=== PATIENT | female | born 1985 | race African-American/Black ===

== ENCOUNTER 2020-09-28 10:01 | Outpatient (REF) | payer OTHER, SELFPAY ==
[2020-09-28 11:22] LABS: MANUAL DIFF FLAG NO
[2020-09-28 11:33] LABS: Basophils Percent Auto 0.4 % (0-2); Eosinophils Percent Auto 0.7 % (0-4); Hematocrit 40.7 % (37-47); Hemoglobin 13.1 g/dl (12.0-16.0); Imm Gran Abs Auto 0.01 X10*3/uL (0.00-0.03); Imm Gran Pct Auto 0.2 % (0.0-0.4); Lymphocytes Absolute Auto 1.9 X10*3/uL (1.2-4.9); Lymphocytes Percent Auto 34.5 % (20-40); Mean Corpuscular HGB Conc 32.2 g/dl (31.0-35.0); Mean Corpuscular Volume 93.1 fL (80-98); Mean Platelet Volume 9.4 fL (9.4-12.3); Monocytes Absolute Auto 0.5 X10*3/uL (0.1-1.2); Monocytes Percent Auto 8.5 % (2-11); Neutrophils Absolute Auto 3.1 X10*3/uL (2.0-8.3); Neutrophils Percent Auto 55.7 % (45-73); Platelet Count 305 X10*3/uL (160-400); Red Blood Count 4.37 X10*6/uL (4.20-5.50); Red Cell Distribution Width 11.4 % (11.0-16.0); White Blood Count 5.5 X10*3/uL (4.8-10.8)
[2020-09-28 12:04] LABS: Alanine Aminotransferase 16 U/L (0-31); Anion Gap 13 (12-20); Aspartate Amino Transferase 15 U/L (5-31); Blood Urea Nitrogen 16 mg/dL (9-16); Calcium 8.4 mg/dL (8.4-10.2); Carbon Dioxide 23 mmol/L (22-29); Chloride 107 mmol/L (96-108); Cholesterol 152 mg/dL; Estimated Glomerular Filt Rate > 60; Glucose Fasting 73 mg/dL (60-99); HDL Cholesterol 55 mg/dL; Iron 106 mcg/dL (30-160); LDL Cholesterol Calculated 89 mg/dl; Percent Iron Saturation 37 % (15-50); Potassium 4.5 mmol/L (3.3-5.1); Sodium 138 mmol/L (135-145); Total Iron Binding Capacity 290 mcg/dL (228-428); Triglycerides 40 mg/dL; Unsaturated Iron Binding 184 ug/dL
[2020-09-28 12:27] LABS: TSH reflex Free T4 0.36 uIU/mL (0.32-4.0); Vitamin D 25-OH Total 27.4 ng/mL (>30)
[2020-09-28 13:04] LABS: Ferritin 42 ng/mL (10-122)
== END 2020-09-28 10:02 | disposition home or self-care (01) ==
LOC: HO.HMGCLDS 10:01
PROVIDERS: PCP Internal Medicine; Visit Provider Internal Medicine
DX: Z00.01 Encounter for general adult medical examination with abnormal findings (principal); D50.0 Iron deficiency anemia secondary to blood loss (chronic); I10 Essential (primary) hypertension
CPT/HCPCS: 36415; 80048; 80061; 82306; 82728; 83540; 84443; 84450; 84460; 85025

== ENCOUNTER 2021-09-29 11:03 | Outpatient (REF) | payer OTHER, SELFPAY ==
[2021-09-29 13:53] LABS: MANUAL DIFF FLAG NO
[2021-09-29 13:57] LABS: Basophils Percent Auto 0.5 % (0-2); Eosinophils Percent Auto 0.7 % (0-4); Hematocrit 39.3 % (37.0-47.0); Hemoglobin 12.7 g/dl (12.0-16.0); Imm Gran Abs Auto 0.01 X10*3/uL (0.00-0.03); Imm Gran Pct Auto 0.2 % (0.0-0.4); Lymphocytes Absolute Auto 2.9 X10*3/uL (1.2-4.9); Lymphocytes Percent Auto 48.4 % (20-40); Mean Corpuscular HGB Conc 32.3 g/dl (31.0-35.0); Mean Corpuscular Volume 92.9 fL (80.0-98.0); Mean Platelet Volume 9.2 fL (9.4-12.3); Monocytes Absolute Auto 0.5 X10*3/uL (0.1-1.2); Monocytes Percent Auto 7.6 % (2-11); Neutrophils Absolute Auto 2.5 x10*3/uL (2.0-8.3); Neutrophils Percent Auto 42.6 % (45-73); Platelet Count 338 X10*3/uL (160-400); Red Blood Count 4.23 X10*6/uL (4.20-5.50); Red Cell Distribution Width 11.6 % (11.0-16.0); White Blood Count 5.9 X10*3/uL (4.8-10.8)
[2021-09-29 14:08] LABS: Alanine Aminotransferase 17 U/L (0-31); Anion Gap 10 (12-20); Aspartate Amino Transferase 16 U/L (5-31); Blood Urea Nitrogen 12 mg/dL (9-16); Calcium 9.3 mg/dL (8.4-10.2); Carbon Dioxide 28 mmol/L (22-29); Chloride 106 mmol/L (96-108); Cholesterol 158 mg/dL; Estimated Glomerular Filt Rate > 60; Glucose Fasting 74 mg/dL (60-99); HDL Cholesterol 57 mg/dL; Iron 128 mcg/dL (30-160); LDL Cholesterol Calculated 92 mg/dl; Percent Iron Saturation 47 % (15-50); Potassium 4.5 mmol/L (3.3-5.1); Sodium 139 mmol/L (135-145); Total Iron Binding Capacity 274 mcg/dL (228-428); Triglycerides 47 mg/dL; Unsaturated Iron Binding 146 ug/dL
[2021-09-29 14:25] LABS: Vitamin D 25-OH Total 36.4 ng/mL (>30)
== END 2021-09-29 11:04 | disposition home or self-care (01) ==
LOC: HO.HMGCLDS 11:03
PROVIDERS: Visit Provider Internal Medicine
DX: Z00.01 Encounter for general adult medical examination with abnormal findings (principal)
CPT/HCPCS: 36415; 80048; 80061; 82306; 83540; 84450; 84460; 85025

== ENCOUNTER 2022-10-02 10:48 | Outpatient (REF) | payer OTHER, SELFPAY ==
[2022-10-02 14:02] LABS: Alanine Aminotransferase 16 U/L (0-31); Anion Gap 12 (12-20); Aspartate Amino Transferase 15 U/L (5-31); Blood Urea Nitrogen 11 mg/dL (9-16); Calcium 9.4 mg/dL (8.4-10.2); Carbon Dioxide 23 mmol/L (22-29); Chloride 106 mmol/L (96-108); Cholesterol 154 mg/dL; Estimated Glomerular Filt Rate > 60; Glucose Fasting 83 mg/dL (60-99); HDL Cholesterol 61 mg/dL; LDL Cholesterol Calculated 85 mg/dl; Potassium 4.1 mmol/L (3.3-5.1); Sodium 137 mmol/L (135-145); Triglycerides 42 mg/dL
[2022-10-02 14:44] LABS: Vitamin D 25-OH Total 29.4 ng/mL (>30)
== END 2022-10-02 10:49 | disposition home or self-care (01) ==
LOC: HO.HMGCLDS 10:48
PROVIDERS: PCP Internal Medicine; Visit Provider Internal Medicine
DX: Z00.01 Encounter for general adult medical examination with abnormal findings (principal); F32.A Depression, unspecified; F41.9 Anxiety disorder, unspecified
CPT/HCPCS: 36415; 80048; 80061; 82306; 84450; 84460

== ENCOUNTER 2023-03-12 13:32 | Outpatient (AMB) | payer OTHER, SELFPAY ==
--- NOTE | 2023-03-12 13:37 | A.OFFPC_ITS ---
Vital Signs 03/12/23 14:04 Height 5 ft 1 in Weight 163 lb BMI 30.8 BP 110/60 Blood Pressure Location Rt brachial Position Sitting Pulse 63 Pulse Source Pulse Oximeter Pulse Oximetry (%) 97 Oxygen Delivery Method Room Air Intake Visit Reasons: 1 Month F/Up Intake Note: Pt is here today for her 1month anxiety and depression Allergies No Known Allergies Allergy (Verified 03/12/23 14:15) Medication List - Last Reconciled 03/12/23 by Shira Barrientos MD ascorbic acid (vitamin C) 500 mg PO DAILY buspirone 10 mg PO BID calcium carb-mag ox-zinc gluc 333-133-5 mg tabs PO cholecalciferol (vitamin D3) 50 mcg PO DAILY multivitamin 1 tab PO DAILY omega 8-row-lny-fish oil 300-1,000 mg 1 cap PO DAILY Tobacco use date assessed: 03/12/23 Dental Screening Dental Screen Date: 03/12/23 Did you have a dental visit in the last 12 months?: Yes Did you have a dental problem in the last 6 months where you did not have access to dental care?: No Was dental information given to patient?: Patient has dentist HPI 1 Month F/Up HPI Details 37-year-old lady here today for follow-up on her anxiety depression, currently taking buspirone 10 mg , but has only been taking it mainly in the morning and forgets the afternoon dose. States that it has been helping but still gets occasional episodes of anxiety attacks usually later in the day. Has been tolerating medication without any side effects. Does not see a therapist does not feel that she needs to see 1 at present time [facility] Medical History Anxiety and depression COVID-19 Fracture of right wrist with nonunion Iron deficiency anemia Smoker unmotivated to quit Uterine fibroid Surgical History H/O hysterectomy for benign disease History of bilateral salpingectomy History of section History of tubal ligation Family History Father Medical history non-contributory Mother HTN (hypertension) Brother No problems noted. Brother No problems noted. Sister No problems noted. Sister No problems noted. Sister No problems noted. Sister No problems noted. Sister No problems noted. Sister No problems noted. Son No problems noted. Daughter No problems noted. Paternal Grandmother Cancer Social History Housing: House Unable to assess alcohol history related to: Unknown Patient Tobacco Use Status: Current someday Tobacco user Cigarettes Per Day: 5 e-Cigarette/Vaping Use: Former Use service: No Current occupational status: employed Cognitive needs: No Hearing needs: No Vision needs: Yes Questionnaire PHQ-9 Over the last 2 weeks, how often have you been bothered by any of the following problems? 1. Little interest or pleasure in doing things: not at all 2. Feeling down, depressed, or hopeless: not at all 3. Trouble falling or staying asleep, or sleeping too much: several days 4. Feeling tired or having little energy: several days 5. Poor appetite or overeating: not at all 6. Feeling bad about yourself - or that you are a failure or have let yourself or your family down: not at all 7. Trouble concentrating on things, such as reading the newspaper or watching television: not at all 8. Moving or speaking so slowly that other people could have noticed. Or the opposite - being so fidgety or restless that you have been moving around a lot more than usual: not at all 9. Thoughts that you would be better off or of hurting yourself in some way: not at all Total score: 2 Depression Screening Interpretation: Positive Depression Screening Follow-up: Existing condition and In treatment 19470 - PHQ-9 Billing: Yes Source: Developed by Drs. Sean Carrington, Sari Burton, Garrett schmidt nd colleagues, with an educational jose from [employer]. NANCY-7 AMB Questionnaire NANCY-7 Date NANCY - 7 assessed: 03/12/23 Feeling nervous, anxious, or on edge: 1 = Several days Not being able to stop or control worryin = Several days Worrying too much about different things: 0 = Not at all Trouble relaxin = Not at all Being so restless that it is hard to sit still: 0 = Not at all Becoming easily annoyed or irritable: 0 = Not at all Feeling afraid as if something awful might happen: 0 = Not at all Total NANCY-7 score (0-4 normal; 5-9 mild; 10-14 moderate; 15-21 severe): 2 Source: Developed by Drs. Sean Carrington, Sari Burton, Garrett Fair and colleagues, with an educational jose from [employer]. NANCY-7 Assessment Billing NANCY-7 Assessment Tool: NANCY-7 Assessment 56935 Review of Systems Const All systems reviewed & are unremarkable except as noted in HPI and below Physical exam (Primary Care) Vital Signs: Last Vital Signs Pulse 63 03/12/23 14:04 BP 110/60 03/12/23 14:04 Pulse Ox 97 03/12/23 14:04 Oxygen Delivery Method Room Air 03/12/23 14:04 BMI result Body Mass Index 30.8 Tobacco/Smoking Status: Tobacco use Status Tobacco use date assessed 03/12/23 03/12/23 14:07 Patient Tobacco Use Status Current someday Tobacco 03/12/23 13:38 e-Cigarette/Vaping Use Former Use 03/12/23 13:38 Depression Screening Interpretation: Positive Depression Screening Follow-up: Existing condition and In treatment Thrive Assessment: Date of Thrive Assessment Date Thrive assessed 10/02/22 03/12/23 13:38 Const Other: Alert oriented x3, no acute distress noted ambulatory normal gait Neck Neck: Yes full ROM, Yes no lymphadenopathy and Yes supple Resp Auscultation: clear to auscultation bilaterally Cardio Rate: regular rate Rhythm: regular rhythm Heart sounds: S1 normal heart sound present and S2 normal heart sound present Psych Appearance: grossly normal and well kempt Mental Status: mental status grossly normal Speech and movement: Normal speech and movement present Affect: normal affect Attitude: cooperative Thought process: Normal thought process present Thought content: Normal thought content present Assessment and Plan Assessment & Plan (1) Anxiety and depression: Code(s): F41.9 - Anxiety disorder, unspecified; F32.A - Depression, unspecified Plan: She states that she has been feeling better since starting buspirone 10 mg but has only been taking it in the morning, advised to take it twice a day, at least morning and around mid to late afternoon. Refill sent, see her back for follow- up on her physical exam scheduled for July 2023 Medications: Refilled buspirone 10 mg PO BID 60 tabs 4RF F32.A - Depression, unspecified, F41.9 - Anxiety disorder, unspecified Coding Level of Care Code Est Pt Level 3 (76729) Diagnoses Anxiety and depression F41.9; F32.A Additional Codes NANCY-7 Assessment Billing - NANCY-7 Assessment Tool: NANCY-7 Assessment 65674 ([id number])
[2023-03-12 14:04] VITALS: BP 110/60; PULSE 63; O2SAT 97; BMI 30.8
== END 2023-03-12 14:36 | disposition home or self-care (01) ==
PROVIDERS: PCP Internal Medicine; Visit Provider Internal Medicine
DX: F41.9 Anxiety disorder, unspecified (principal); F32.A Depression, unspecified
CPT/HCPCS: 99213

== ENCOUNTER 2023-10-09 10:47 | Outpatient (AMB) | payer OTHER, SELFPAY ==
--- NOTE | 2023-10-09 11:16 | A.OFFPC_ITS ---
Vital Signs 10/09/23 11:17 Height 5 ft 1 in Weight 155 lb BMI 29.3 BP 106/64 Blood Pressure Location Rt brachial Position Sitting Pulse 59 Pulse Source Pulse Oximeter Pulse Oximetry (%) 100 Oxygen Delivery Method Room Air Intake Visit Reasons: Annual PE Intake Note: Pt is here today for her PE: hysterectomy 03/04/20 [facility] Allergies No Known Allergies Allergy (Verified 10/09/23 11:44) Medication List - Last Reconciled 10/09/23 by Shira Barrientos MD ascorbic acid (vitamin C) 500 mg PO DAILY calcium carb-mag ox-zinc gluc 333-133-5 mg tabs PO cholecalciferol (vitamin D3) 50 mcg PO DAILY multivitamin 1 tab PO DAILY omega 2-jtx-scj-fish oil 300-1,000 mg 1 cap PO DAILY Tobacco use date assessed: 10/09/23 Dental Screening Dental Screen Date: 10/09/23 Did you have a dental visit in the last 12 months?: Yes Did you have a dental problem in the last 6 months where you did not have access to dental care?: No Was dental information given to patient?: Patient has dentist HPI Annual PE HPI Details 37-year-old lady here today for physical exam. She heads history of hysterectomy due to uterine fibroids. She has been having intermittent episodes of acute anxiety attacks and low mood, not much improved after starting buspirone 10 mg twice a day, as patient is keeps forgetting to take her evening dose. Would like to see if she can be placed on medication that she takes once a day. Declines referral for counseling. Continues to smoke cigarettes, trying to cut back but not ready to quit complete at present time [facility] Medical History (Updated 10/09/23 @ 11:46 by Shira Barrientos MD) History of uterine fibroid History of iron deficiency anemia Smoker unmotivated to quit Anxiety and depression COVID-19 Fracture of right wrist with nonunion Surgical History H/O hysterectomy for benign disease History of bilateral salpingectomy History of section History of tubal ligation Family History Father Medical history non-contributory Mother HTN (hypertension) Brother No problems noted. Brother No problems noted. Sister No problems noted. Sister No problems noted. Sister No problems noted. Sister No problems noted. Sister No problems noted. Sister No problems noted. Son No problems noted. Daughter No problems noted. Paternal Grandmother Cancer Social History Housing: House Unable to assess alcohol history related to: Unknown Patient Tobacco Use Status: Current someday Tobacco user Cigarettes Per Day: 5 e-Cigarette/Vaping Use: Former Use service: No Current occupational status: employed Cognitive needs: No Hearing needs: No Vision needs: Yes Questionnaire PHQ-9 Over the last 2 weeks, how often have you been bothered by any of the following problems? 1. Little interest or pleasure in doing things: several days 2. Feeling down, depressed, or hopeless: several days 3. Trouble falling or staying asleep, or sleeping too much: more than half the days 4. Feeling tired or having little energy: several days 5. Poor appetite or overeating: several days 6. Feeling bad about yourself - or that you are a failure or have let yourself or your family down: not at all 7. Trouble concentrating on things, such as reading the newspaper or watching television: not at all 8. Moving or speaking so slowly that other people could have noticed. Or the opposite - being so fidgety or restless that you have been moving around a lot more than usual: not at all 9. Thoughts that you would be better off or of hurting yourself in some way: not at all Total score: 6 Depression Screening Interpretation: Positive Depression Screening Follow-up: Existing condition, In treatment and New Medication prescribed Depression Screening Done: Yes Source: Developed by Drs. Sean Carrington, Sari Burton, Garrett Fair and colleagues, with an educational jose from [employer]. Thrive Questionnaire Date Thrive assessed: 10/09/23 I am a: Patient What is your living situation today?: I have a steady place to live Within the past 12 months, did the food you bought not last and you didn't have the money to get more?: Never true Within the past 12 months, did you worry whether your food would run out before you got money to buy more?: Never true Do you have trouble paying for medicines?: No Do you have trouble getting transportation to medical appointments?: No Do you have trouble paying your heating and electricity bill?: No Do you have trouble taking care of your child, family member or friend?: No Do you have trouble with day-to-day activities such as bathing, preparing meals, shopping, managing finances, etc.?: No Are you currently unemployed and looking for a job?: No Are you interested in more education?: No THRIVE Score: 0 AUDIT C Alcohol Use Questionnaire (AUDIT-C) 1. How often do you have a drink containing alcohol?: Monthly or less 2. How many drinks containing alcohol do you have on a typical day when you are drinking?: 1 or 2 3. How often do you have six or more drinks on one occasion?: Never Total Score: 1 NANCY-7 AMB Questionnaire NANCY-7 Date NANCY - 7 assessed: 10/09/23 Feeling nervous, anxious, or on edge: 2 = More than half the days Not being able to stop or control worryin = More than half the days Worrying too much about different things: 1 = Several days Trouble relaxin = Several days Being so restless that it is hard to sit still: 1 = Several days Becoming easily annoyed or irritable: 2 = More than half the days Feeling afraid as if something awful might happen: 0 = Not at all Total NANCY-7 score (0-4 normal; 5-9 mild; 10-14 moderate; 15-21 severe): 9 Source: Developed by Drs. Sean Carrington, Sari Burton, Garrett Fair and colleagues, with an educational jose from [employer]. NANCY-7 Assessment Billing NANCY-7 Assessment Tool: NANCY-7 Assessment 47654 Review of Systems Const Denies body aches, Denies fatigue and Denies headache(s) Eyes Details: has myopia , wears contacts , sees [facility] ENT Denies dizziness, Denies headache(s), Denies nasal congestion and Denies post nasal drip Card Denies irregular heart rhythm and Denies lightheadedness Resp Reports no additional complaints GI Reports no additional complaints Reports no additional complaints Musc Reports no additional complaints Skin/Breast Denies breast pain, Denies breast mass and Denies rash Neuro Reports no additional complaints, Denies dizziness and Denies headache(s) Psych Reports as per HPI Endo Reports no additional complaints and Denies fatigue Sal/Lymph Reports no additional complaints Aller/Immun Reports no additional complaints Physical exam (Primary Care) Vital Signs: Last Vital Signs Pulse 59 10/09/23 11:17 BP 106/64 10/09/23 11:17 Pulse Ox 100 10/09/23 11:17 Oxygen Delivery Method Room Air 10/09/23 11:17 BMI result Body Mass Index 29.3 Tobacco/Smoking Status: Tobacco use Status Tobacco use date assessed 10/09/23 10/09/23 11:26 Patient Tobacco Use Status Current someday Tobacco 10/09/23 11:19 e-Cigarette/Vaping Use Former Use 10/09/23 11:19 PHQ-9: PHQ-9 Score PHQ-9: Total score 6 10/09/23 11:58 Depression Screening Interpretation: Positive Depression Screening Follow-up: Existing condition, In treatment and New Medication prescribed Thrive Assessment: Date of Thrive Assessment Date Thrive assessed 10/09/23 10/09/23 11:29 Const General: cooperative, no acute distress and alert Orientation/consciousness: patient oriented x3 HENMT Head: Yes normocephalic Ears: hearing grossly normal bilaterally, TM's normal bilaterally and EAC's normal Eyes General: appearance normal, both eyes and all related structures Neck Neck: Yes full ROM, Yes no lymphadenopathy, Yes no meningeal signs and Yes supple Thyroid: Thyroid normal Chest Breast/axilla palpation: normal palpation of the breasts Resp Auscultation: clear to auscultation bilaterally Cardio Rate: regular rate Rhythm: regular rhythm Heart sounds: S1 normal heart sound present and S2 normal heart sound present GI Palpation (GI): Soft to palpation, nontender and no guarding General: Yes no CVA tenderness Back/Spine/Pelvis Back: no CVA tenderness and No back tenderness Skin General skin exam: no rashes or lesions noted and scars (Midline surgical scar) Neuro General: patient oriented x3, gait normal, tone normal, moves all extremities, Normal light touch and pain sensation, no meningeal signs and no focal motor deficits Extrem General: Yes full ROM, Yes no joint enlargement, Yes no pedal edema, Yes no calf tenderness and Yes normal gait Psych Appearance: grossly normal and well kempt Mental Status: mental status grossly normal Speech and movement: Normal speech and movement present Affect: normal affect Attitude: cooperative Thought process: Normal thought process present Thought content: Normal thought content present Assessment and Plan Assessment & Plan (1) Annual visit for general adult medical examination with abnormal findings: Code(s): Z00.01 - Encounter for general adult medical examination with abnormal findings Plan: Fasting labs ordered, . Recommended dental visit every 6 months and regular eye exams, at least every 2 years goes to [facility]. Take adequate calcium in diet and vitamin-D 3 at 2000 IU per cap once a day, in addition to weight-bearing exercises to help maintain good muscle tone and weight control. Instructed to do self-breast exam, and recommended to get yearly mammogram, starting at age 40, mammogram ordered.. Declines COVID vaccine booster and flu vaccine, up-to-date with her Tdap (2) History of vitamin D deficiency: Code(s): Z86.39 - Personal history of other endocrine, nutritional and metabolic disease Plan: Vitamin-D level ordered (3) Anxiety and depression: Code(s): F41.9 - Anxiety disorder, unspecified; F32.A - Depression, unspecified Plan: Discontinued buspirone, started on escitalopram 5 mg per tablet to take once a day in the morning. Schedule telehealth appointment for follow-up in 4 weeks Orders: Orders Lipid Panel 10/09/23 Z00. - Encounter for general adult medical examination with abnormal findings, Z86.39 - Personal history of other endocrine, nutritional and metabolic disease MM tomosynthesis screening BI 01/12/24 Z12.31 - Encounter for screening mammogram for malignant neoplasm of breast Complete Blood Count Auto Diff 10/09/23 Z00. - Encounter for general adult medical examination with abnormal findings, Z86.39 - Personal history of other endocrine, nutritional and metabolic disease Glucose Fasting 10/09/23 Z00.01 - Encounter for general adult medical examination with abnormal findings, Z86.39 - Personal history of other endocrine, nutritional and metabolic disease Vitamin D 25-OH Total 10/09/23 Z00. - Encounter for general adult medical examination with abnormal findings, Z86.39 - Personal history of other endocrine, nutritional and metabolic disease Medications: New escitalopram oxalate 5 mg PO DAILY 30 tabs 1RF F32.A - Depression, unspecified, F41.9 - Anxiety disorder, unspecified Coding Level of Care Code Est Pt Prev Care 18-39y(41828) Diagnoses Annual visit for general adult medical examination with abnormal findings Z00.01 History of vitamin D deficiency Z86.39 Anxiety and depression F41.9; F32.A Additional Codes NANCY-7 Assessment Billing - NANCY-7 Assessment Tool: NANCY-7 Assessment 54995 ([id number])
[2023-10-09 11:17] VITALS: BP 106/64; PULSE 59; O2SAT 100; BMI 29.3
== END 2023-10-09 16:03 | disposition home or self-care (01) ==
PROVIDERS: Visit Provider Internal Medicine
DX: Z00.01 Encounter for general adult medical examination with abnormal findings (principal); Z86.39 Personal history of other endocrine, nutritional and metabolic disease; F41.9 Anxiety disorder, unspecified; F32.A Depression, unspecified
CPT/HCPCS: 99395

== ENCOUNTER 2023-10-09 12:02 | Outpatient (REF) | payer OTHER, SELFPAY ==
[2023-10-09 13:18] LABS: MANUAL DIFF FLAG NO
[2023-10-09 13:39] LABS: Basophils Percent Auto 0.5 % (0-2); Eosinophils Percent Auto 0.3 % (0-4); Hematocrit 41.8 % (37.0-47.0); Hemoglobin 13.7 g/dl (12.0-16.0); Imm Gran Abs Auto 0.01 X10*3/uL (0.00-0.03); Imm Gran Pct Auto 0.2 % (0.0-0.4); Lymphocytes Absolute Auto 2.6 X10*3/uL (1.2-4.9); Lymphocytes Percent Auto 46.1 % (20-40); Mean Corpuscular HGB Conc 32.8 g/dl (31.0-35.0); Mean Corpuscular Hemoglobin 30.4 pg (27.0-33.0); Mean Corpuscular Volume 92.7 fL (80.0-98.0); Mean Platelet Volume 9.2 fL (9.4-12.3); Monocytes Absolute Auto 0.4 X10*3/uL (0.1-1.2); Monocytes Percent Auto 6.6 % (2-11); Neutrophils Absolute Auto 2.7 x10*3/uL (2.0-8.3); Neutrophils Percent Auto 46.3 % (45-73); Platelet Count 285 X10*3/uL (160-400); Red Blood Count 4.51 X10*6/uL (4.20-5.50); Red Cell Distribution Width 11.3 % (11.0-16.0); White Blood Count 5.7 X10*3/uL (4.8-10.8)
[2023-10-09 13:56] LABS: Cholesterol 162 mg/dL (<200); Glucose Fasting 87 mg/dL (60-99); HDL Cholesterol 62 mg/dL (>40); LDL Cholesterol Calculated 92 mg/dL (<100); Triglycerides 42 mg/dL (<150); Vitamin D 25-OH Total 54.4 ng/mL (>30)
== END 2023-10-09 12:03 | disposition home or self-care (01) ==
LOC: HO.HMGCLDS 12:02
PROVIDERS: PCP Internal Medicine; Visit Provider Internal Medicine
DX: Z00.01 Encounter for general adult medical examination with abnormal findings (principal); Z13.6 Encounter for screening for cardiovascular disorders; Z86.39 Personal history of other endocrine, nutritional and metabolic disease
CPT/HCPCS: 36415; 80061; 82306; 82947; 85025

== ENCOUNTER 2023-11-07 10:58 | Outpatient (AMB) | payer OTHER, SELFPAY ==
--- NOTE | 2023-11-07 10:56 | MHC.PC.OV ---
Intake Visit Reasons: 4WK F/U Telehealth Intake Note: Pt is having a telehealth visit f/u med Allergies No Known Allergies Allergy (Verified 11/07/23 11:28) Medication List - Last Reconciled 11/07/23 by Shira Barrientos MD ascorbic acid (vitamin C) 500 mg PO DAILY calcium carb-mag ox-zinc gluc 333-133-5 mg tabs PO cholecalciferol (vitamin D3) 50 mcg PO DAILY escitalopram oxalate 5 mg PO DAILY multivitamin 1 tab PO DAILY omega 6-iug-muw-fish oil 300-1,000 mg 1 cap PO DAILY Tobacco use date assessed: 11/07/23 Dental Screening Dental Screen Date: 11/07/23 Did you have a dental visit in the last 12 months?: Yes Did you have a dental problem in the last 6 months where you did not have access to dental care?: No Was dental information given to patient?: Patient has dentist HPI 4WK F/U Telehealth HPI Details 27-year-old lady here today for fall risk follow-up by telephone, regarding anxiety depression. She was started on escitalopram 5 mg 1 tablet daily which he takes in the morning on last office visit approximately 4 weeks ago. Patient reports better mood, no anxiety attacks, sleeping better and has more energy since she started taking the medication, no side effects reported. [facility] Medical History History of uterine fibroid History of iron deficiency anemia Smoker unmotivated to quit Anxiety and depression COVID-19 Fracture of right wrist with nonunion Surgical History H/O hysterectomy for benign disease History of bilateral salpingectomy History of section History of tubal ligation Family History Father Medical history non-contributory Mother HTN (hypertension) Brother No problems noted. Brother No problems noted. Sister No problems noted. Sister No problems noted. Sister No problems noted. Sister No problems noted. Sister No problems noted. Sister No problems noted. Son No problems noted. Daughter No problems noted. Paternal Grandmother Cancer Social History Housing: House Unable to assess alcohol history related to: Unknown Patient Tobacco Use Status: Current someday Tobacco user Cigarettes Per Day: 5 e-Cigarette/Vaping Use: Former Use service: No Current occupational status: employed Cognitive needs: No Hearing needs: No Vision needs: Yes Questionnaire PHQ-9 Over the last 2 weeks, how often have you been bothered by any of the following problems? 1. Little interest or pleasure in doing things: not at all 2. Feeling down, depressed, or hopeless: not at all 3. Trouble falling or staying asleep, or sleeping too much: not at all 4. Feeling tired or having little energy: not at all 5. Poor appetite or overeating: not at all 6. Feeling bad about yourself - or that you are a failure or have let yourself or your family down: not at all 7. Trouble concentrating on things, such as reading the newspaper or watching television: not at all 8. Moving or speaking so slowly that other people could have noticed. Or the opposite - being so fidgety or restless that you have been moving around a lot more than usual: not at all 9. Thoughts that you would be better off or of hurting yourself in some way: not at all Total score: 0 Depression Screening Interpretation: Negative (Depression controlled with escitalopram 5 mg daily) Depression Screening Done: Yes 05057 - PHQ-9 Billing: Yes Source: Developed by Drs. Sean Carrington, Sari Burton, Garrett Fair and colleagues, with an educational jose from [employer]. Thrive Questionnaire Date Thrive assessed: 10/09/23 NANCY-7 AMB Questionnaire NANCY-7 Date NANCY - 7 assessed: 11/07/23 Feeling nervous, anxious, or on edge: 0 = Not at all Not being able to stop or control worryin = Not at all Worrying too much about different things: 0 = Not at all Trouble relaxin = Not at all Being so restless that it is hard to sit still: 0 = Not at all Becoming easily annoyed or irritable: 0 = Not at all Feeling afraid as if something awful might happen: 0 = Not at all Total NANCY-7 score (0-4 normal; 5-9 mild; 10-14 moderate; 15-21 severe): 0 Source: Developed by Drs. Sean Carrnigton, Sari Burton, Garrett Fair and colleagues, with an educational jose from [employer]. NANCY-7 Assessment Billing NANCY-7 Assessment Tool: NANCY-7 Assessment 37218 Review of Systems Const Denies body aches Eyes Details: has myopia , wears contacts , sees [facility] ENT Denies nasal congestion and Denies post nasal drip Card Denies irregular heart rhythm and Denies lightheadedness Resp Reports no additional complaints GI Reports no additional complaints Reports no additional complaints Musc Reports no additional complaints Neuro Reports no additional complaints Psych Reports as per HPI Endo Reports no additional complaints Sal/Lymph Reports no additional complaints Aller/Immun Reports no additional complaints Physical exam (Primary Care) Tobacco/Smoking Status: Tobacco use Status Tobacco use date assessed 11/07/23 11/07/23 10:57 Patient Tobacco Use Status Current someday Tobacco 11/07/23 10:57 e-Cigarette/Vaping Use Former Use 11/07/23 10:57 PHQ-9: PHQ-9 Score PHQ-9: Total score 0 11/07/23 11:37 Depression Screening Interpretation: Negative (Depression controlled with escitalopram 5 mg daily) Thrive Assessment: Date of Thrive Assessment Date Thrive assessed 10/09/23 11/07/23 10:57 Telehealth Telehealth Location of provider rendering services: practice address Location of patient: address on file Patient Identification confirmed using: Name, : Yes Telehealth method: video Patient verbally consented to treatment: Yes Patient verbally consented to billing insurance company: Yes Patient informed of any privacy concerns related to visit: Yes Minutes spent on Phone/Video with Pt.: 15 Assessment and Plan Assessment & Plan (1) Anxiety and depression: Code(s): F41.9 - Anxiety disorder, unspecified; F32.A - Depression, unspecified Plan: Depression and anxiety stable and controlled on escitalopram 5 mg once a day, no side effects reported from medication. Will keep her on the same dose, continue with regular exercise Medications: Refilled escitalopram oxalate 5 mg PO DAILY 90 tabs 3RF F32.A - Depression, unspecified, F41.9 - Anxiety disorder, unspecified Coding Level of Care Code Tele Est Pt Level 3 (30956) Diagnoses Anxiety and depression F41.9; F32.A Additional Codes NANCY-7 Assessment Billing - NANCY-7 Assessment Tool: NANCY-7 Assessment 48260 ([id number])
== END 2023-11-07 12:18 | disposition home or self-care (01) ==
LOC: HO.HMGC 10:58
PROVIDERS: PCP Internal Medicine; Visit Provider Internal Medicine
DX: F41.9 Anxiety disorder, unspecified (principal); F32.A Depression, unspecified
CPT/HCPCS: 99213

== ENCOUNTER 2024-01-14 10:38 | Outpatient (REF) | payer OTHER, SELFPAY ==
--- NOTE | ~2024-01-14 | MM_ITS ---
EXAMINATION: MM SCREENING DIGITAL BREAST TOMOSYNTHESIS, BILATERAL CLINICAL INFORMATION: Screening. Asymptomatic. COMPARISON: Mammography: This is a baseline study. TECHNIQUE: Digital breast tomosynthesis is performed in both the craniocaudal and mediolateral oblique views along with computer-aided detection (CAD). Synthesized 2D images are generated from the tomosynthesis. FINDINGS: The breasts are heterogeneously dense, which may obscure small masses (ACR BI-RADS breast composition Category c). There are scattered calcifications involving mainly the upper outer quadrants of each breast with some calcifications extending into the medial and lower aspects of each breast. Bilateral magnification imaging of these areas is advised. There is a focal asymmetry of the deep third of the upper outer quadrant of the right breast. It is associated with calcification. Further evaluation of this finding with separate spot compression and magnification imaging is advised. MM/MM tomosynthesis screening BI IMPRESSION: Bilateral calcifications and right focal asymmetry with associated calcification warrants additional mammographic imaging with magnification. Performing bilateral delayed magnification in the 90 degree plane to allow any potential milk of calcium 2 settle will be helpful. Targeted sonographic imaging of the right focal asymmetry is also advised. Please note that the focal asymmetry should be separately imaged with spot compression and separate magnification views. ASSESSMENT: BI-RADS BI-RADS 0 - Incomplete: Needs additional Imaging. RECOMMENDATION: 1. Additional views of both breasts. 2. Targeted ultrasound if warranted after review of the additional views. 3. Radiology department staff will contact the patient for additional imaging. Additional Imaging required This examination should not preclude the clinical evaluation of a suspicious palpable abnormality. This patient's information was entered into a reminder system with a target due date for their next mammogram.
== END 2024-01-14 10:39 | disposition home or self-care (01) ==
LOC: HO.MAMMO 10:38
PROVIDERS: PCP Internal Medicine; Visit Provider Internal Medicine
DX: Z12.31 Encounter for screening mammogram for malignant neoplasm of breast (principal)
CPT/HCPCS: 77063; 77067

== ENCOUNTER → 2024-01-14 10:45 | Outpatient (BNV) | payer OTHER, SELFPAY | PROVIDERS: PCP Internal Medicine; Visit Provider Radiology Diagnostic Radiology | DX: Z12.31 Encounter for screening mammogram for malignant neoplasm of breast (principal) | CPT/HCPCS: 77063; 77067 ==

== ENCOUNTER 2024-01-16 09:25 | Outpatient (REF) | payer OTHER, SELFPAY ==
--- NOTE | ~2024-01-16 | MM_ITS ---
EXAMINATION: MM DIAGNOSTIC DIGITAL BREAST TOMOSYNTHESIS, BILATERAL US BREAST LIMITED, RIGHT MAMMOGRAPHY: CLINICAL INFORMATION: Diagnostic call back from baseline screening mammography for bilateral calcifications, and right posterior 8:00 focal asymmetry with associated calcifications. COMPARISON: Mammography: Baseline screening 01/14/2024. TECHNIQUE: Digital breast tomosynthesis is performed in the following views: Full-field 3-D bilateral 90 degree mediolateral views, 3-D spot compression right CC and MLO views, as well as 2-D spot magnification right CC view, left CC view x2, left mediolateral view, and right mediolateral view x2. FINDINGS: The breasts are heterogeneously dense, which may obscure small masses (ACR BI-RADS breast composition Category c). (accession [id number]), There are scattered areas of fibroglandular density (ACR BI-RADS breast composition Category b). (accession [id number]) RIGHT BREAST: -There are global diffuse microcalcifications which are similar to the contralateral side, however there are no suspicious groupings identified. No definite significant layering on the mediolateral views. No definite aggressive appearances, no linear forms, branching forms, or segmental distributions. These are probably benign calcifications most likely related to sclerosing adenosis. Six-month follow-up magnification views recommended. -There is a more focal asymmetry at the 8:00 axis, posterior one third, with a group of cysts type appearance and heterogeneous large probably dystrophic calcifications associated, a few with lucent centers and a few layering within microcysts. This asymmetry measures approximately 0.9 x 0.6 cm on mammography. This will be evaluated with ultrasound. LEFT BREAST: -There are diffuse global microcalcifications with at least 3 groupings of punctate, rounded calcifications in the 12:00 retroareolar region, 10:00 axis large group middle one third, and immediately posterior to this a mildly pleomorphic but course grouped 10:00 axis posterior one third. No definite significant layering on the mediolateral views. No definite aggressive appearance, no linear forms, branching forms, or segmental distributions. These are probably benign calcifications most likely related to sclerosing adenosis. Six-month interval follow-up magnification views recommended. ULTRASOUND: CLINICAL INFORMATION: Evaluate focal asymmetry 8 o'clock axis posterior one third RIGHT breast with associated macrocalcifications, a few layering calcifications, and multicystic appearance. COMPARISON: None TECHNIQUE: Targeted sonographic evaluation right breast was performed using a high frequency linear transducer. Attention given to the 8:00 axis posterior one third. Selected archived documentation. FINDINGS: RIGHT BREAST: -In the 8:00 axis, directly overlying the pectoralis fascia right breast, there is a 0.9 x 0.6 x 0.5 cm multicystic mass with macrocalcifications, and septations. There is a small amount of layering milk of calcium in one of the posterior cysts. Septations have some mild color Doppler flow associated. Given the presence of milk of calcium and macrocalcifications, a few with lucent centers, this lesion is probably benign, and six-month interval follow-up targeted right breast ultrasound recommended to ensure stability. MM/MM tomosynthesis added view BI IMPRESSION: -Breast tissue is heterogeneously dense, bordering on extremely dense. -Probably benign calcifications bilateral breasts (as described above) for which six-month interval follow-up BILATERAL magnification views recommended to ensure stability. (Please obtain similar views). -Multicystic mass in the posterior right breast 8:00 axis measuring 9 x 6 x 5 mm, with some benign features such as milk of calcium and lucent centered macrocalcifications. These findings suggest a probably benign etiology. Recommend six-month interval follow-up targeted right breast ultrasound to ensure stability. -Findings were relayed to the patient by the technologist. OVERALL ASSESSMENT: Mammography: BI-RADS 3 - Probably benign finding(s) - 6 month follow-up suggested Ultrasound: BI-RADS 3 - Probably benign finding(s) - 6 month follow-up suggested RECOMMENDATION: 6 Month F/U This patient's information was entered into a reminder system with a target due date for their next mammogram.
== END 2024-01-16 09:26 | disposition home or self-care (01) ==
LOC: HO.MAMMO 09:25
PROVIDERS: PCP Internal Medicine; Visit Provider Internal Medicine
DX: R92.0 Mammographic microcalcification found on diagnostic imaging of breast (principal); N64.89 Other specified disorders of breast
CPT/HCPCS: 76642; 77062; 77066

== ENCOUNTER → 2024-01-16 09:30 | Outpatient (BNV) | payer OTHER, SELFPAY | PROVIDERS: PCP Internal Medicine; Visit Provider Radiology Diagnostic Radiology | DX: R92.1 Mammographic calcification found on diagnostic imaging of breast (principal) | CPT/HCPCS: 76642; 77062; 77066 ==

== ENCOUNTER 2024-07-23 10:39 | Outpatient (REF) | payer OTHER, SELFPAY ==
--- NOTE | ~2024-07-23 | US_ITS ---
EXAMINATION: MM DIAGNOSTIC DIGITAL BREAST TOMOSYNTHESIS, BILATERAL Limited right breast ultrasound. CLINICAL INFORMATION: 6 month follow-up for bilateral calcifications and right cyst versus solid mass on ultrasound. COMPARISON: Mammography: Comparison is made with relevant prior exams. TECHNIQUE: Digital breast mammography with tomosynthesis is performed in both the craniocaudal and mediolateral oblique views along with computer-aided detection (CAD). Limited right breast ultrasound. FINDINGS: The breasts are heterogeneously dense, which may obscure small masses (ACR BI-RADS breast composition Category c). Scattered calcifications throughout the upper outer quadrant of the left breast are not significantly changed from prior magnification view 6 months ago. Grouped calcifications in the central outer breast posterior depth are not significantly changed from prior magnification views in 6 months ago and 70 demonstrate layering on MLO magnification views. No suspicious masses or other abnormal findings. Targeted color Doppler ultrasound in the right breast area of previously seen complicated adjacent cysts versus solid mass at 8:00 5 cm from nipple again demonstrates area of probable adjacent minimally corticated cyst with intervening breast tissue measuring approximate 8 x 6 x 5 mm. Not significantly changed from prior and probably benign. Results are provided to the patient at time of visit by the technologist. US/US breast RT limited mamm only IMPRESSION: Bilateral calcifications for which six-month follow-up mammogram with medication views is recommended for further evaluation of stability when the patient is due for bilateral mammography. Right breast solid mass versus computer-aided cyst at 8:00. Recommend 6 month follow-up right breast ultrasound for further evaluation of stability. ASSESSMENT: BI-RADS BI-RADS 3 - Probably benign finding(s) - 6 month follow-up suggested RECOMMENDATION: 6 month followup bilateral mammogram with magnification views. 6 month followup right breast ultrasound recommended. This patient's information was entered into a reminder system with a target due date for their next mammogram. Electronically signed by: Lissette Quezada DO 07/23/2024 12:11 PM [facility]
== END 2024-07-23 10:40 | disposition home or self-care (01) ==
LOC: HO.MAMMO 10:39
PROVIDERS: PCP Internal Medicine; Visit Provider Internal Medicine
DX: R92.1 Mammographic calcification found on diagnostic imaging of breast (principal)
CPT/HCPCS: 76642; 77062; 77066

== ENCOUNTER → 2024-07-23 11:30 | Outpatient (BNV) | payer OTHER, SELFPAY | PROVIDERS: PCP Internal Medicine; Visit Provider Internal Medicine | DX: R92.1 Mammographic calcification found on diagnostic imaging of breast (principal); N60.01 Solitary cyst of right breast; R92.333 Mammographic heterogeneous density, bilateral breasts | CPT/HCPCS: 76642; 77062; 77066 ==

== ENCOUNTER 2024-11-12 13:34 | Outpatient (AMB) | payer OTHER, SELFPAY ==
[2024-11-12 13:46] VITALS: BP 116/76; PULSE 60; O2SAT 98; BMI 30.8
--- NOTE | 2024-11-12 13:46 | A.OFFPC_ITS ---
Vital Signs 11/12/24 13:46 Height 5 ft 1 in Weight 163 lb BMI 30.8 BP 116/76 Blood Pressure Location Lt brachial Position Sitting Pulse 60 Pulse Source Pulse Oximeter Pulse Oximetry (%) 98 Oxygen Delivery Method Room Air Intake Visit Reasons: PE/Appt R/S due to falling on a Sunday Library Information Technician Required: No Accompanied by: Self / Same As Patient Allergies No Known Allergies Allergy (Verified 11/12/24 14:01) Medication List - Last Reconciled 11/12/24 by Shira Barrientos MD No Known Home Meds Tobacco use date assessed: 11/12/24 Dental Screening Dental Screen Date: 11/12/24 Did you have a dental visit in the last 12 months?: Yes Did you have a dental problem in the last 6 months where you did not have access to dental care?: No Was dental information given to patient?: Patient has dentist HPI PE/Appt R/S due to falling on a Sunday HPI Details 38-year-old lady here today for physical exam. She has no complaints at present time does not take any medications. She however continues to smoke cigarettes at least 5 a day with no desire to quit at present. She is up-to-date with her screening mammogram, go gets cervical cancer screening and she underwent a hysterectomy with bilateral salpingectomy due to uterine fibroids present [facility] Medical History (Updated 11/12/24 @ 14:13 by Shira Barrientos MD) Surgical menopause History of uterine fibroid History of iron deficiency anemia Smoker unmotivated to quit Anxiety and depression COVID-19 Fracture of right wrist with nonunion Surgical History H/O hysterectomy for benign disease History of bilateral salpingectomy History of section History of tubal ligation Family History Father Medical history non-contributory Mother HTN (hypertension) Brother No problems noted. Brother No problems noted. Sister No problems noted. Sister No problems noted. Sister No problems noted. Sister No problems noted. Sister No problems noted. Sister No problems noted. Son No problems noted. Daughter No problems noted. Paternal Grandmother Cancer Social History Housing: House Unable to assess alcohol history related to: Unknown Patient Tobacco Use Status: Current someday Tobacco user Cigarettes Per Day: 5 e-Cigarette/Vaping Use: Former Use service: No Current occupational status: employed Cognitive needs: No Hearing needs: No Vision needs: Yes Questionnaire PHQ-9 Over the last 2 weeks, how often have you been bothered by any of the following problems? 1. Little interest or pleasure in doing things: not at all 2. Feeling down, depressed, or hopeless: not at all 3. Trouble falling or staying asleep, or sleeping too much: several days 4. Feeling tired or having little energy: several days 5. Poor appetite or overeating: several days 6. Feeling bad about yourself - or that you are a failure or have let yourself or your family down: not at all 7. Trouble concentrating on things, such as reading the newspaper or watching television: not at all 8. Moving or speaking so slowly that other people could have noticed. Or the opposite - being so fidgety or restless that you have been moving around a lot more than usual: several days 9. Thoughts that you would be better off or of hurting yourself in some way: not at all Total score: 4 Depression Screening Interpretation: Negative Depression Screening Done: Yes 47255 - PHQ-9 Billing: Yes Source: Developed by Drs. Sean Carrington, Sari Burton, Garrett Fair and colleagues, with an educational jose from [employer]. Thrive Questionnaire Date Thrive assessed: 11/12/24 I am a: Patient What is your living situation today?: I have a steady place to live Within the past 12 months, did the food you bought not last and you didn't have the money to get more?: Never true Within the past 12 months, did you worry whether your food would run out before you got money to buy more?: Never true Do you have trouble paying for medicines?: No Do you have trouble getting transportation to medical appointments?: No Do you have trouble paying your heating and electricity bill?: No Do you have trouble taking care of your child, family member or friend?: No Do you have trouble with day-to-day activities such as bathing, preparing meals, shopping, managing finances, etc.?: No Are you currently unemployed and looking for a job?: No Are you interested in more education?: No Please select the resources that you would like help with: None Currently or been in a relationship where the following occur: No concerns reported THRIVE Score: 0 AUDIT C Alcohol Use Questionnaire (AUDIT-C) 1. How often do you have a drink containing alcohol?: Monthly or less 2. How many drinks containing alcohol do you have on a typical day when you are drinking?: 1 or 2 3. How often do you have six or more drinks on one occasion?: Never Total Score: 1 Score Reviewed/Action Taken: Yes NANCY-7 AMB Questionnaire NANCY-7 Date NANCY - 7 assessed: 11/12/24 Feeling nervous, anxious, or on edge: 1 = Several days Not being able to stop or control worryin = Not at all Worrying too much about different things: 1 = Several days Trouble relaxin = Not at all Being so restless that it is hard to sit still: 0 = Not at all Becoming easily annoyed or irritable: 1 = Several days Feeling afraid as if something awful might happen: 0 = Not at all Total NANCY-7 score (0-4 normal; 5-9 mild; 10-14 moderate; 15-21 severe): 3 Source: Developed by Drs. Sean Carrington, Sari Burton, Garrett Fair and colleagues, with an educational jose from [employer]. NANCY-7 Assessment Billing NANCY-7 Assessment Tool: NANCY-7 Assessment 12448 Review of Systems Const Denies body aches Eyes Details: has myopia , wears contacts , sees [facility] ENT Denies nasal congestion and Denies post nasal drip Card Denies irregular heart rhythm and Denies lightheadedness Resp Reports no additional complaints GI Reports no additional complaints Reports no additional complaints and Denies nipple discharge Musc Reports no additional complaints Skin/Breast Denies breast pain, Denies breast mass, Denies nipple discharge and Denies rash Neuro Reports no additional complaints Psych Reports as per HPI Endo Reports no additional complaints Sal/Lymph Reports no additional complaints Aller/Immun Reports no additional complaints Physical exam (Primary Care) Vital Signs: Last Vital Signs Pulse 60 11/12/24 13:46 BP 116/76 11/12/24 13:46 Pulse Ox 98 04/02/25 13:46 Oxygen Delivery Method Room Air 11/12/24 13:46 BMI result Body Mass Index 30.8 Tobacco/Smoking Status: Tobacco use Status Tobacco use date assessed 11/12/24 11/12/24 13:51 Patient Tobacco Use Status Current someday Tobacco 11/12/24 13:51 e-Cigarette/Vaping Use Former Use 11/12/24 13:51 Are you ready to quit: No Tobacco cessation counseling provided: Yes PHQ-9: PHQ-9 Score PHQ-9: Total score 4 11/12/24 23:00 Depression Screening Interpretation: Negative Thrive Assessment: Date of Thrive Assessment Date Thrive assessed 11/12/24 11/12/24 13:51 Currently or been in a relationship where the following occur: No concerns reported Const General: cooperative, no acute distress and alert Orientation/consciousness: patient oriented x3 HENMT Head: Yes normocephalic Ears: hearing grossly normal bilaterally, TM's normal bilaterally and EAC's normal Eyes General: appearance normal, both eyes and all related structures Neck Neck: Yes full ROM, Yes no lymphadenopathy, Yes no meningeal signs and Yes supple Thyroid: Thyroid normal Chest Breast/axilla palpation: normal palpation of the breasts Resp Auscultation: clear to auscultation bilaterally Cardio Rate: regular rate Rhythm: regular rhythm Heart sounds: S1 normal heart sound present and S2 normal heart sound present GI Palpation (GI): Soft to palpation, nontender and no guarding General: Yes no CVA tenderness Back/Spine/Pelvis Back: no CVA tenderness and No back tenderness Skin General skin exam: no rashes or lesions noted and scars (Midline surgical scar) Neuro General: patient oriented x3, gait normal, tone normal, moves all extremities, Normal light touch and pain sensation, no meningeal signs and no focal motor deficits Extrem General: Yes full ROM, Yes no joint enlargement, Yes no pedal edema, Yes no calf tenderness and Yes normal gait Psych Appearance: grossly normal and well kempt Mental Status: mental status grossly normal Speech and movement: Normal speech and movement present Affect: normal affect Attitude: cooperative Thought process: Normal thought process present Thought content: Normal thought content present Coding Level of Care Code Est Pt Level 4 (03128) Diagnoses Annual visit for general adult medical examination with abnormal findings Z00.01 Smoker unmotivated to quit F17.200 Additional Codes NANCY-7 Assessment Billing - NANCY-7 Assessment Tool: NANCY-7 Assessment 05456 ([id number]) PHQ-9 - 50743 - PHQ-9 Billing: Yes ([id number]) Assessment & Plan Assessment & Plan (1) Annual visit for general adult medical examination with abnormal findings: Code(s): Z00.01 - Encounter for general adult medical examination with abnormal findings Plan: Will check appropriate labs. Recommended dental visit every 6 months and regular eye exams, at least every 2 years, goes to [facility]. Take adequate calcium in diet and vitamin-D 3 at 2000 IU per cap once a day, in addition to weight-bearing exercises to help maintain good muscle tone and weight control. Instructed to do self-breast exam, and recommended to get yearly mammogram, starting at age 40. No longer gets Pap smears . Reminded her yearly flu shot, but does not want to get COVID booster, up-to-date with Tdap. Up-to-date with her screening mammogram done in July 2024 (2) Smoker unmotivated to quit: Code(s): F17.200 - Nicotine dependence, unspecified, uncomplicated Category: Social Hx Plan: Patient strongly advised to stop smoking, as smoking damages blood vessels, degenerative of joints and spine, damage to lungs and heart., predisposes to developing certain cancers like lung, breast, bladder, colon. Recommended to try decreasing cigarette use by 1-2 cigarettes a day. Advised to monitor what triggers are for smoking so that this can be discussed on the next office visit. We can discuss different options to quit smoking when ready. Orders: Orders Lipid Panel 11/12/24 Z00.01 - Encounter for general adult medical examination with abnormal findings, Z13.1 - Encounter for screening for diabetes mellitus, Z13.220 - Encounter for screening for lipoid disorders Vitamin D 25-OH Total 11/12/24 E89.40 - Asymptomatic postprocedural ovarian failure, Z00.01 - Encounter for general adult medical examination with abnormal findings, Z13.1 - Encounter for screening for diabetes mellitus, Z13.220 - Encounter for screening for lipoid disorders Basic Metabolic Panel Fasting 11/12/24 Z00.01 - Encounter for general adult medical examination with abnormal findings, Z13.1 - Encounter for screening for diabetes mellitus, Z13.220 - Encounter for screening for lipoid disorders Aspartate Amino Transferase 11/12/24 Z00.01 - Encounter for general adult medical examination with abnormal findings, Z13.1 - Encounter for screening for diabetes mellitus, Z13.220 - Encounter for screening for lipoid disorders Alanine Aminotransferase 11/12/24 Z00.01 - Encounter for general adult medical examination with abnormal findings, Z13.1 - Encounter for screening for diabetes mellitus, Z13.220 - Encounter for screening for lipoid disorders
== END 2024-11-12 14:27 | disposition home or self-care (01) ==
LOC: HO.HMCC 13:35
PROVIDERS: PCP Internal Medicine; Visit Provider Internal Medicine
DX: Z00.01 Encounter for general adult medical examination with abnormal findings (principal); F17.200 Nicotine dependence, unspecified, uncomplicated

== ENCOUNTER 2024-11-12 13:34 | Outpatient (REF) | payer OTHER, SELFPAY ==
[2024-11-12 16:42] LABS: Alanine Aminotransferase 41 U/L (0-31); Anion Gap 9 (12-20); Aspartate Amino Transferase 28 U/L (5-31); Blood Urea Nitrogen 11 mg/dL (9-16); Calcium 9.1 mg/dL (8.4-10.2); Carbon Dioxide 25 mmol/L (22-29); Chloride 108 mmol/L (96-108); Cholesterol 161 mg/dL (<200); Estimated Glomerular Filt Rate > 60; Glucose Fasting 77 mg/dL (60-99); HDL Cholesterol 66 mg/dL (>40); LDL Cholesterol Calculated 87 mg/dL (<100); Potassium 3.6 mmol/L (3.3-5.1); Sodium 138 mmol/L (135-145); Triglycerides 41 mg/dL (<150)
[2024-11-12 16:56] LABS: Vitamin D 25-OH Total 43.1 ng/mL (>30)
== END 2024-11-12 13:35 | disposition home or self-care (01) ==
LOC: HO.HMGCLDS 13:34
PROVIDERS: PCP Internal Medicine; Visit Provider Internal Medicine
DX: Z00.01 Encounter for general adult medical examination with abnormal findings (principal); Z13.6 Encounter for screening for cardiovascular disorders; E89.40 Asymptomatic postprocedural ovarian failure; F17.210 Nicotine dependence, cigarettes, uncomplicated; Z71.6 Tobacco abuse counseling
CPT/HCPCS: 36415; 80048; 80061; 82306; 84450; 84460; 96127

== ENCOUNTER 2025-01-14 12:37 | Outpatient (REF) | payer OTHER, SELFPAY ==
--- NOTE | ~2025-01-14 | MM_ITS ---
EXAMINATION: MM DIAGNOSTIC DIGITAL BREAST TOMOSYNTHESIS, BILATERAL Right limited ultrasound. CLINICAL INFORMATION: 1 year follow-up for bilateral diffusely scattered calcifications and follow-up form adjacent simple to minimally complicated COMPARISON: Mammography: Comparison is made with relevant prior exams. TECHNIQUE: Digital breast mammography with tomosynthesis is performed in both the craniocaudal and mediolateral oblique views along with computer-aided detection (CAD). FINDINGS: The breasts are heterogeneously dense, which may obscure small masses (ACR BI-RADS breast composition Category c). Bilateral diffusely scattered calcifications are not significantly changed from prior magnification views dating back for one year. No suspicious masses or other abnormal findings. Targeted color Doppler ultrasound in the right breast again demonstrates adjacent simple to minimally complicated cyst at 8:00 5 cm from the nipple measuring approximately 5 x 4 x 3 mm. There is thin intervening breast tissue. There is no internal vascular flow. Results are provided to the patient at time of visit by the technologist. MM/MM tomosynthesis diagnostic BI IMPRESSION: Adjacent simple to minimally corticated cysts in the right breast 8:00 5 cm from the nipple. Benign. Bilateral diffusely scattered calcifications are not significantly changed from prior magnification views dating back for one year. Recommend 6 month follow-up when the patient will be due for bilateral mammography with cong synthesis. ASSESSMENT: BI-RADS BI-RADS 3 - Probably benign finding(s) - 6 month follow-up suggested RECOMMENDATION: 6 Month F/U This patient's information was entered into a reminder system with a target due date for their next mammogram. Electronically signed by: Lissette Quezada DO 01/15/2025 10:08 AM EDT
== END 2025-01-14 12:38 | disposition home or self-care (01) ==
LOC: HO.MAMMO 12:37
PROVIDERS: PCP Internal Medicine; Visit Provider Internal Medicine
DX: R92.1 Mammographic calcification found on diagnostic imaging of breast (principal)
CPT/HCPCS: 76642; 77062; 77066

== ENCOUNTER → 2025-01-14 13:00 | Outpatient (BNV) | payer OTHER, SELFPAY | PROVIDERS: PCP Internal Medicine; Visit Provider Internal Medicine | DX: R92.1 Mammographic calcification found on diagnostic imaging of breast (principal) | CPT/HCPCS: 76642; 77062; 77066 ==

== ENCOUNTER 2025-05-18 08:42 | Outpatient (AMB) | payer OTHER, SELFPAY ==
[2025-05-18 08:44] VITALS: BP 102/74; TEMP 36.8; BMI 30.6
--- NOTE | 2025-05-18 08:44 | AM.OFFWIN_ITS ---
Intake Vital Signs 05/18/25 08:44 Height 5 ft 1 in Weight 162 lb BMI 30.6 BP 102/74 Blood Pressure Location Lt brachial Position Sitting Temp 98.2 F Temp Source Oral Intake Visit Reasons: EP-rt side lower back pain from a fall Intake Note: pt presents with right lower back pain and bruising after a fall 2 days ago Patient Tobacco Use Status: Current someday Tobacco user Allergies No Known Allergies Allergy (Verified 05/18/25 08:47) Do you need a note to return to daycare/school/sports/work: No HPI HPI Comments History of Present Illness Details History of Present Illness - The patient is a 39-year-old female pr esenting with lower back pain following a fall. - The fall occurred on Sunday while ca rrying a bucket of water down stairs, resulting in a landing on a hardwood floor and subsequent right hip pain. - Pain is aggravated by lifting and cert ain movements, with ibuprofen providing partial relief. - Notable bruising is present in the rig ht hip area, impacting mobility. - She has pain that wraps around to the the right groin area. - She feels that she has been leaning mo re to the right due to her pain. - She states that she has pain with sitt ing, walking, and lifting her leg. - She denies saddle anesthesia, numbness , tingling, or incontinence. - She denies abd pain, n/v/d, dysuria, h ematuria, dizziness, weakness, CP or SOB. Physical Exam General: Cooperative, healthy appearing, comfortable, no acute distress and well developed Orientation: Patient oriented x3 Limitations: Pain and limitations in hip movement, particularly when lifting le gs Respiratory: Normal respiratory effort and able to speak in complete sentences. Skin: Bruising noted in the right lower back. No hematomas noted. Neuro: Patient oriented x3, CN 2-12 intact, gait normal Back/spine: no TTP cervical, thoracic or lumbar spine, no step offs noted. Tenderness noted in lumbar paraspinous muscles on the right. TTP of the right lateral hip and right groin. Ambulates with slow gait. Strength is 5/5 on the LE. Extremities: Negative SLR on the right. Patient was informed and verbally consented to the use of an ambient scribe for clinic note documentation during this visit. [facility] Medical History (Updated 11/12/24 @ 14:13 by Shira Barrientos MD) Surgical menopause History of uterine fibroid History of iron deficiency anemia Smoker unmotivated to quit Anxiety and depression COVID-19 Fracture of right wrist with nonunion Surgical History H/O hysterectomy for benign disease History of bilateral salpingectomy History of section History of tubal ligation Family History Father Medical history non-contributory Mother HTN (hypertension) Brother No problems noted. Brother No problems noted. Sister No problems noted. Sister No problems noted. Sister No problems noted. Sister No problems noted. Sister No problems noted. Sister No problems noted. Son No problems noted. Daughter No problems noted. Paternal Grandmother Cancer Social History Housing: House Patient Tobacco Use Status: Current someday Tobacco user Cigarettes Per Day: 5 e-Cigarette/Vaping Use: Former Use service: No Current occupational status: employed Cognitive needs: No Hearing needs: No Vision needs: Yes Review of Systems Const All systems reviewed & are unremarkable except as noted in HPI and below Physical Exam Vital Signs: Last Vital Signs Temp 98.2 F 05/18/25 08:44 BP 102/74 05/18/25 08:44 BMI result Body Mass Index 30.6 Results Reviewed Results Reviewed: will review the x-rays in the office Assessment & Plan Assessment & Plan (1) Fall: Code(s): W19.XXXA - Unspecified fall, initial encounter Qualifiers: Encounter type: initial encounter Qualified Code(s): W19.XXXA - Unspecified fall, initial encounter (2) Lower back pain: Code(s): M54.50 - Low back pain, unspecified Qualifiers: Chronicity: acute Back pain laterality: right Sciatica presence: without sciatica Qualified Code(s): M54.50 - Low back pain, unspecified Plan Most likely contusion and muscle strain after a fall, unlikely fracture Plan - An x-ray of the right hip and pelvis is ordered to rule out fractures and assess the extent of injury. - rest and ice to the area - Motrin as needed for pain - A muscle relaxant is prescribed to alleviate muscle spasms and improve comfort. - The patient is advised to avoid heavy lifting and to engage in light activities to prevent exacerbation of symptoms. - Follow-up will be conducted via phone call to discuss x-ray results and further management. Orders: Orders XR hip RT w PEL1V Today M25.551 - Pain in right hip Medications: New cyclobenzaprine 5 mg PO Q8H PRN 20 tabs 0RF Muscle Spasm Coding Level of Care Code Est Pt Level 4 (38006) Diagnoses Fall, initial encounter W19.XXXA Encounter type: initial encounter Acute right-sided low back pain without sciatica M54.50 Chronicity: acute Back pain laterality: right Sciatica presence: without sciatica
== END 2025-05-18 09:33 | disposition home or self-care (01) ==
PROVIDERS: PCP Internal Medicine; Visit Provider Physician Assistant Medical
DX: M54.50 Low back pain, unspecified (principal); W19.XXXA Unspecified fall, initial encounter

== ENCOUNTER 2025-05-18 08:42 | Outpatient (REF) | payer OTHER, SELFPAY ==
--- NOTE | ~2025-05-18 | XR_ITS ---
EXAMINATION: XR HIP, RIGHT CLINICAL INFORMATION: M25.551 - Pain in right hip COMPARISON: None available. TECHNIQUE: Two views of the right hip. FINDINGS: There is mild superior lateral joint space narrowing. There are marginal osteophyte involving the femoral head. No other abnormalities are noted. XR/XR hip RT w PEL1V IMPRESSION: Mild right hip ARTHRITIS. Electronically signed by: Keith Devries MD 05/18/2025 09:49 AM EDT
== END 2025-05-18 08:43 | disposition home or self-care (01) ==
LOC: HO.HMGCX 08:42
PROVIDERS: PCP Internal Medicine; Visit Provider Physician Assistant Medical
DX: M54.50 Low back pain, unspecified (principal); M25.551 Pain in right hip; W19.XXXA Unspecified fall, initial encounter
CPT/HCPCS: 73502

== ENCOUNTER → 2025-05-18 09:30 | Outpatient (BNV) | payer OTHER, SELFPAY | PROVIDERS: PCP Internal Medicine; Visit Provider Radiology Diagnostic Radiology | DX: M16.11 Unilateral primary osteoarthritis, right hip (principal) | CPT/HCPCS: 73502 ==